=== PATIENT | male | born 2000 | race Caucasian/White ===

== ENCOUNTER 2022-03-28 00:14 | Emergency (ER) | payer MEDICAID, OTHER ==
[~2022-03-28] VITALS: Ht 193 cm; Wt 99.8 kg
--- NOTE | 2022-03-28 01:22 | ED EENT ---
History of Present Illness General Chief Complaint: Ear Problems Stated Complaint: BOTH EARS HURT,SORE THROAT Nursing Triage Note: PT AMBULATE TO ROOM 10 WITH C/O LEFT SIDE EAR PAIN AND SORE THROAT X2 DAYS. PT REPORTS TAKING IBUPROFEN FOR PAIN. PT STATES THAT THE PAIN HAS WORSENED. Source: patient History of Present Illness Date Seen by Provider: Mar 28, 2022 Time Seen by Provider: 00:29 Initial Comments PT ARRIVES VIA POV C/O BILATERAL EAR PAIN AND SORE THROAT SINCE TUESDAY NO KNOWN FEVER NO COUGH OR URI SYMPTOMS NO NAUSEA/VOMITING NO HEADACHE NO BODY ACHES TOOK 800 MG IBUPROFEN AT NOON, AND IT HELPED, BUT HAS NOT TAKEN ANYTHING ELSE FOR SYMPTOMS AT ANY TIME NO KNOWN SICK CONTACTS PT LIVES IN [place] AND HIS HERE VISITING HIS DAD FOR THE WEEKEND. Allergies and Home Medications Allergies Coded Allergies: No Known Drug Allergies (Unverified , 03/28/22) Patient Home Medication List Home Medication List Reviewed: Yes Review of Systems Review of Systems Constitutional: no symptoms reported; No fever Eyes: No Symptoms Reported Ears: See HPI, Pain Nose: no symptoms reported Mouth: no symptoms reported Throat: see HPI, pain; denies hoarse, denies aphonia, denies muffled; painful swallowing; denies difficulty with fluids, denies previous injury Respiratory: no symptoms reported Cardiovascular: no symptoms reported Gastrointestinal: no symptoms reported Musculoskeletal: no symptoms reported Skin: no symptoms reported Neurological: No Symptoms Reported Hematologic/Lymphatic: Swollen Glands (IN HIS NECK X 2 DAYS) Immunological/Allergic: no symptoms reported Past Ngppjqd-Diqluz-Ecxaxz Hx Patient Social History Tobacco Use?: No Smoking Status: Never a Smoker Smokeless Tobacco Frequency: Never a User Use of E-Cig and/or Vaping dev: No Use of E-Cig and/or Vaping Jn: Never a User Substance use?: No Alcohol Use?: No Pt feels they are or have been: No Past Medical History Surgeries: No Respiratory: Yes Asthma Cardiac: No Neurological: No Genitourinary: No Gastrointestinal: No Musculoskeletal: No Endocrine: No HEENT: No Cancer: No Psychosocial: No Integumentary: No Blood Disorders: No Physical Exam Vital Signs Vital Signs - First Documented 03/28/22 00:28 Temp 36.6 Pulse 92 Resp 16 B/P (MAP) 134/87 (103) O2 Delivery Room Air Height, Weight, BMI Height: '" Weight: lbs. oz. kg; 26.00 BMI Method: General Appearance: WD/WN, no apparent distress Eyes: bilateral eye normal inspection, bilateral eye PERRL, bilateral eye EOMI Ears: bilateral ear erythema (TM'S MARKEDLY INFLAMED BILATERALLY) Nose: normal inspection Mouth/Throat: No trismus, No uvula swelling, No voice changes; other (TONSILS +2/4 IN SIZE BILATERALLY AND VERY INFLAMED. NO EVIDENCE OF ABSCESS. NO MIDLINE SHIFT. RIGHT TONSIL HAS ONE SMALL AREA OF EXUDATE VS DEBRIS IN TONSILLAR CRYPT. OTHERWISE NO EXUDATE NOTED ANYWHERE ELSE. ) Neck: full range of motion, supple, lymphadenopathy (R), lymphadenopathy (L), other (MILD ANTERIOR CERVICAL ADENOPATHY, AND TENDER TO PALPATION) Cardiovascular: regular rate, rhythm, no murmur Respiratory: normal breath sounds Gastrointestinal: non tender, soft, no organomegaly Neurologic/Psychiatric: sugar presser II-XII nml as tested, no motor/sensory deficits, alert, normal mood/affect, oriented x 3 Skin: normal color, warm/dry; No rash Progress/Results/Core Measures Results/Orders Lab Results Laboratory Tests Test 03/28/22 00:36 Range/Units Influenza Type A (RT-PCR) Not Detected Not Detecte Influenza Type B (RT-PCR) Not Detected Not Detecte SARS-CoV-2 RNA (RT-PCR) Not Detected Not Detecte Group A Streptococcus Screen NEGATIVE NEGATIVE My Orders Orders - KJ MURRELL DO Rapid Strep A Screen (03/28/22 00:28) Covid 19 Inhouse Test (03/28/22 00:28) Influenza A And B By Pcr (03/28/22 00:28) Isolation Central Supply Req (03/28/22 00:28) Vital Signs/I&O 03/28/22 00:28 Temp 36.6 Pulse 92 Resp 16 B/P (MAP) 134/87 (103) O2 Delivery Room Air Blood Pressure Mean: 103 Progress Progress Note : Progress Note PLACED IN ISOLATION ROOM PPE WORN COVID, FLU, STREP TESTING DONE DISCUSSED TESTING FOR MONO, AND PT OPTS TO TRY ANTIBIOTICS AT THIS TIME. ADVISED PT THAT IF HE WAS NOT BETTER AFTER 3 DAYS OF ANTIBIOTICS, HE SHOULD FOLLOW UP WITH HIS REGULAR DR IN , AND MAY NEED TO BE TESTED FOR MONO OR RETESTED FOR OTHER INFECTIONS AT THAT TIME. GIVEN ROCEPHIN AND TORADOL Departure Impression Primary Impression: Pharyngitis Additional Impression: Bilateral otitis media Disposition: HOME, SELF-CARE Condition: Stable Departure-Patient Inst. Decision time for Depature: 01:20 Referrals: NO,LOCAL PHYSICIAN (PCP/Family) Primary Care Physician Patient Instructions: Ear Infections (Otitis Media) in Adults (DC), Sore Throat, Adult ED Add. Discharge Instructions: FREQUENT SALT WATER GARGLES OVER THE COUNTER CEPACOL LOZENGES NEEDED FOR PAIN LOTS OF CLEAR LIQUIDS TYLENOL 1 GRAM 4 TIMES A DAY NEEDED FOR PAIN OR FEVER FOLLOW UP WITH YOUR DR IN 3 DAYS IF NO BETTER, RETURN TO ER IF WORSE All discharge instructions reviewed with patient and/or family. Voiced understanding. Scripts Ketorolac Tromethamine (Ketorolac Tromethamine) 10 Mg Tablet 10 MG PO Q6H for Pain, #15 TAB Prov: KJ MURRELL DO 03/28/22 Cefuroxime Axetil (Cefuroxime) 500 Mg Tablet 500 MG PO BID, #20 TAB Prov: KJ MURRELL DO 03/28/22 KJ MURRELL DO Mar 28, 2022 01:22
[2022-03-28] MEDS ORDERED: CEFU500T63 PO (01:24)
[2022-03-28] MEDS ORDERED: KETO10TA PO (01:24)
[2022-03-28 01:28] VITALS: BP 134/87
[2022-03-28] MEDS ORDERED: cefTRIAXone 1,000 MG VIAL IM ONE (01:30)
[2022-03-28] MEDS ORDERED: KETOROLAC 60 MG/2 ML VIAL IM ONE (01:30)
[2022-03-28] MEDS ORDERED: LIDOCAINE 1% INJ 20 ML VIAL INJ ONE (01:30)
== END 2022-03-28 01:39 | disposition home or self-care (01) ==
LOC: EDUNIT# 00:14 → ER 00:18
DX: H66.93 Otitis media, unspecified, bilateral (principal); J02.9 Acute pharyngitis, unspecified; Z20.822 Contact with and (suspected) exposure to COVID-19; Z28.310 Unvaccinated for COVID-19
CPT/HCPCS: 87430; 87636; 99283

== ENCOUNTER 2022-04-06 21:45 | Emergency (ER) | payer MEDICAID ==
[~2022-04-06 21:45] MED LIST: CEFU500T63 PO; KETO10TA PO
[2022-04-06] MEDS ORDERED: cefTRIAXone 1 GM PRE-MIX 50 ML IV ONE (23:15)
[2022-04-06] MEDS ORDERED: KETOROLAC 30 MG/ML VIAL IVP ONE (23:15)
[2022-04-06] MEDS ORDERED: LACTATED RINGERS 1,000 ML IV ONE (23:15)
--- NOTE | 2022-04-06 23:19 | ED EENT ---
History of Present Illness General Chief Complaint: COVID19 Suspect/Confirmed Stated Complaint: THROAT SWELLING, EAR PAIN Source: patient (KJ MURRELL DO) History of Present Illness Date Seen by Provider: Apr 06, 2022 Time Seen by Provider: 22:49 Initial Comments PT ARRIVES VIA POV C/O SORE THROAT AND SWELLING TO LEFT TONSIL AREA C/O LEFT > RIGHT EAR PAIN NO FEVER MILD NASAL CONGESTION NO COUGH NO HEADACHE NO BODY ACHES NO GI SYMPTOMS WAS SEEN HERE 03/28/22 FOR SAME, COVID/FLU/STREP TESTS WERE NEGATIVE. DX WITH PHARYNGITIS AND PLACED ON CEFUROXIME AND TORADOL PT DECLINED MONO TESTING AT THAT TIME PT HAS NOT ATTEMPTED TO FOLLOW UP WITH ANYONE SINCE THAT VISIT FINISHED ANTIBIOTIC TODAY PAIN IN LEFT SIDE OF THROAT AND LEFT EAR IS MUCH WORSE TOOK IBUPROFEN X 1 TODAY WITHOUT RELIEF PT LIVES IN [place], IS HERE VISITING (KJ MURRELL DO) Allergies and Home Medications Allergies Coded Allergies: No Known Drug Allergies (Unverified , 03/28/22) Patient Home Medication List Home Medication List Reviewed: Yes (DARYA CHAVEZ MD) Cefuroxime Axetil (Cefuroxime) 500 Mg Tablet, 500 MG PO BID Prescribed by: KJ MURRELL on 03/28/22 0124 Ketorolac Tromethamine (Ketorolac Tromethamine) 10 Mg Tablet, 10 MG PO Q6H Prescribed by: KJ MURRELL on 03/28/22 0124 Review of Systems Review of Systems Constitutional: no symptoms reported Eyes: No Symptoms Reported Ears: See HPI Nose: see HPI, congestion Mouth: no symptoms reported Throat: see HPI Respiratory: no symptoms reported; No cough, No short of breath Cardiovascular: no symptoms reported Gastrointestinal: no symptoms reported Musculoskeletal: no symptoms reported Skin: no symptoms reported Neurological: No Symptoms Reported Hematologic/Lymphatic: No Symptoms Reported Immunological/Allergic: no symptoms reported (KJ MURRELL DO) Past Bezpeks-Egyxzc-Xwesgg Hx Patient Social History Tobacco Use?: No Substance use?: No Alcohol Use?: No (KJ MURRELL DO) Past Medical History Surgeries: No Respiratory: Yes Asthma Cardiac: No Neurological: No Genitourinary: No Gastrointestinal: No Musculoskeletal: No Endocrine: No HEENT: No Cancer: No Psychosocial: No Integumentary: No Blood Disorders: No (KJ MURRELL DO) Physical Exam Vital Signs Vital Signs - First Documented 04/06/22 22:41 Temp 36.8 Pulse 88 Resp 16 B/P (MAP) 147/77 (100) Pulse Ox 96 O2 Delivery Room Air (DARYA CHAVEZ MD) Height, Weight, BMI Height: '" Weight: lbs. oz. kg; 26.00 BMI Method: General Appearance: WD/WN, no apparent distress Eyes: bilateral eye normal inspection, bilateral eye PERRL, bilateral eye EOMI Ears: bilateral ear other (TM'S INFLAMED BILATERALLY--LEFT > RIGHT) Mouth/Throat: No tonsillar exudate; tonsillar swelling; No trismus; voice changes, other (TONSILS INFLAMED, LEFT TONSIL IS VERY SWOLLEN WITH UVULAR SHIFT--UVULA IS TOUCHING RIGHT TONSIL. NO EXUDATE. VOICE IS SLIGHTLY MUFFLED. ) Neck: non-tender, full range of motion, supple, lymphadenopathy (R), lymphadenopathy (L) Cardiovascular: regular rate, rhythm, no murmur Respiratory: normal breath sounds Gastrointestinal: normal bowel sounds, non tender, soft, no organomegaly Neurologic/Psychiatric: over short and damage clerk II-XII nml as tested, no motor/sensory deficits, alert, normal mood/affect, oriented x 3 Skin: normal color, warm/dry (KJ MURRELL DO) Progress/Results/Core Measures Results/Orders Lab Results Laboratory Tests Test 04/06/22 23:27 04/07/22 06:40 Range/Units White Blood Count 19.5 H 21.0 H 4.3-11.0 10^3/uL Red Blood Count 5.52 5.83 H 4.30-5.52 10^6/uL Hemoglobin 16.8 17.8 H 13.3-17.7 g/dL Hematocrit 49 52 40-54 % Mean Corpuscular Volume 88 88 80-99 fL Mean Corpuscular Hemoglobin 30 31 25-34 pg Mean Corpuscular Hemoglobin Concent 35 35 32-36 g/dL Red Cell Distribution Width 12.2 12.3 10.0-14.5 % Platelet Count 318 340 130-400 10^3/uL Mean Platelet Volume 10.1 9.9 9.0-12.2 fL Immature Granulocyte % (Auto) 1 1 % Neutrophils (%) (Auto) 83 H 92 H 42-75 % Lymphocytes (%) (Auto) 8 L 5 L 12-44 % Monocytes (%) (Auto) 8 2 0-12 % Eosinophils (%) (Auto) 1 0 0-10 % Basophils (%) (Auto) 0 0 0-10 % Neutrophils # (Auto) 16.1 H 19.4 H 1.8-7.8 10^3/uL Lymphocytes # (Auto) 1.5 1.1 1.0-4.0 10^3/uL Monocytes # (Auto) 1.6 H 0.4 0.0-1.0 10^3/uL Eosinophils # (Auto) 0.2 0.0 0.0-0.3 10^3/uL Basophils # (Auto) 0.1 0.0 0.0-0.1 10^3/uL Immature Granulocyte # (Auto) 0.1 0.1 0.0-0.1 10^3/uL Neutrophils % (Manual) 77 % Lymphocytes % (Manual) 11 % Monocytes % (Manual) 5 % Eosinophils % (Manual) 2 % Band Neutrophils 5 % Blood Morphology Comment NORMAL Erythrocyte Sedimentation Rate 3 0-15 MM/HR Sodium Level 138 136 135-145 MMOL/L Potassium Level 3.7 5.1 H 3.6-5.0 MMOL/L Chloride Level 101 102 98-107 MMOL/L Carbon Dioxide Level 23 25 21-32 MMOL/L Anion Gap 14 9 5-14 MMOL/L Blood Urea Nitrogen 11 11 7-18 MG/DL Creatinine 1.11 1.21 0.60-1.30 MG/DL Estimat Glomerular Filtration Rate 97 88 BUN/Creatinine Ratio 10 9 Glucose Level 106 H 158 H 70-105 MG/DL Lactic Acid Level 0.78 0.50-2.00 MMOL/L Calcium Level 9.6 10.2 H 8.5-10.1 MG/DL Corrected Calcium 8.5-10.1 MG/DL Total Bilirubin 0.6 0.7 0.1-1.0 MG/DL Aspartate Amino Transf (AST/SGOT) 18 16 5-34 U/L Alanine Aminotransferase (ALT/SGPT) 33 33 0-55 U/L Alkaline Phosphatase 54 57 40-136 U/L C-Reactive Protein High Sensitivity 3.16 H 0.00-0.50 MG/DL Total Protein 8.1 8.4 H 6.4-8.2 GM/DL Albumin 4.7 H 4.8 H 3.2-4.5 GM/DL Procalcitonin 0.06 <0.10 NG/ML Monoscreen NEGATIVE NEGATIVE Influenza Type A (RT-PCR) Not Detected Not Detecte Influenza Type B (RT-PCR) Not Detected Not Detecte SARS-CoV-2 RNA (RT-PCR) Not Detected Not Detecte Group A Streptococcus Screen NEGATIVE NEGATIVE (DARYA CHAVEZ MD) My Orders Orders - DARYA CHAVEZ MD Lactated Ringers (Lr 1000 Ml Iv Solution (04/07/22 06:36) (DARYA CHAVEZ MD) Medications Given in ED Current Medications Medications Dose Ordered Sig/Sneha Route Start Time Stop Time Status Last Admin Dose Admin Ceftriaxone Sodium/Dextrose 50 ml @ 100 mls/hr ONCE ONCE IV 04/06/22 23:15 04/06/22 23:44 DC 04/06/22 23:40 100 MLS/HR Dexamethasone Sodium Phosphate 10 mg ONCE ONCE IV 04/06/22 23:15 04/06/22 23:16 DC 04/06/22 23:34 10 MG Iohexol 100 ml ONCE ONCE IV 04/07/22 01:15 04/07/22 01:17 DC 04/07/22 01:11 75 ML Ketorolac Tromethamine 30 mg ONCE ONCE IVP 04/06/22 23:15 04/06/22 23:16 DC 04/06/22 23:34 30 MG Lactated Ringer's 1,000 ml @ 0 mls/hr Q0M ONCE IV 04/06/22 23:15 04/06/22 23:16 DC 04/06/22 23:33 999 MLS/HR Lactated Ringer's 1,000 ml @ 0 mls/hr Q0M ONCE IV 04/07/22 03:30 04/07/22 03:31 DC 04/07/22 06:39 999 MLS/HR Sodium Chloride 10 ml NEEDED PRN IV 04/07/22 01:15 04/07/22 01:11 10 ML Sodium Chloride 100 ml ONCE ONCE IV 04/07/22 01:15 04/07/22 01:17 DC 04/07/22 01:11 77 ML (DARYA CHAVEZ MD) Vital Signs/I&O 04/06/22 04/07/22 22:41 06:44 Temp 36.8 Pulse 88 72 Resp 16 16 B/P (MAP) 147/77 (100) 141/89 Pulse Ox 96 94 O2 Delivery Room Air Room Air 04/07/22 00:00 Intake Total 50 ml Balance 50 ml (DARYA CHAVEZ MD) Progress Progress Note : Progress Note PLACED IN ISOLATION ROOM PPE WORN COVID, FLU, STREP AND MONO TESTING DONE GIVEN IV FLUIDS, DECADRON, TORADOL AND ROCEPHIN NO DETERIORATION IN PT'S CONDITION DURING ER STAY 0600--CARE TURNED OVER TO DR. CHAVEZ, PENDING DR. HUTTON EVALUATING PT HERE IN ER (KJ MURRELL DO) Progress Note : Progress Note 0741: Patient was seen by Dr. Feldman and had abscess drained. He will follow-up with patient in office in 2 weeks. Prescriptions written by him. Discharged home with return precautions. Patient verbalized understanding instructions and agreement with plan. (DARYA CHAVEZ MD) Diagnostic Imaging Comments CT NECK SOFT TISSUE--2.1 CM LEFT TONSILLAR ABSCESS--PER [facility] VIA FAX AT 0150 Reviewed: Reviewed by Me (KJ MURRELL DO) Departure Communication (Admissions) 0155--SPOKE WITH DR. HUTTON, HOSPITALIST, SHE ADVISES TO HOLD PT IN ER, SHE WILL SEE PT IN AM AND CONSULT DR. FELDMAN AT THAT TIME, HE IS ONLY CREDIT ASSISTANT FOR HIS OWN PATIENTS TONIGHT AT THIS HOUR. . (KJ MURRELL DO) Impression Primary Impression: LEFT PERITONISLLAR ABSCESS Additional Impression: Bilateral otitis media Qualified Codes: H65.93 - Unspecified nonsuppurative otitis media, bilateral Disposition: 01 HOME, SELF-CARE Condition: Stable Departure-Patient Inst. Decision time for Depature: 07:40 (DARYA CHAVEZ MD) Referrals: VICKI FELDMAN MD NO,LOCAL PHYSICIAN (PCP) Primary Care Physician Patient Instructions: Peritonsillar Abscess, Adult (DC) Add. Discharge Instructions: All discharge instructions reviewed with patient and/or family. Voiced understanding. Take medications as directed by Dr. Feldman. Follow-up with his office in 2 weeks. Call for appointment. Return for worse pain, swelling, breathing pr oblems, difficulty with swallowing, fever or other concerns as needed. KJ MURRELL DO Apr 06, 2022:19 DARYA CHAVEZ MD Apr 07, 2022 07:42
[2022-04-06 23:54] LABS: BASOPHILS # (AUTO) 0.1 10^3/uL (0.0-0.1); BASOPHILS % (AUTO) 0 % (0-10); EOSINOPHILS # (AUTO) 0.2 10^3/uL (0.0-0.3); EOSINOPHILS % (AUTO) 1 % (0-10); HEMATOCRIT 49 % (40-54); HEMOGLOBIN 16.8 g/dL (13.3-17.7); LYMPHOCYTES # (AUTO) 1.5 10^3/uL (1.0-4.0); LYMPHOCYTES % (AUTO) 8 % (12-44); MEAN CORPUSCULAR HEMOGLOBIN 30 pg (25-34); MEAN CORPUSCULAR HGB CONC 35 g/dL (32-36); MEAN CORPUSCULAR VOLUME 88 fL (80-99); MEAN PLATELET VOLUME 10.1 fL (9.0-12.2); MONOCYTES # (AUTO) 1.6 10^3/uL (0.0-1.0); MONOCYTES % (AUTO) 8 % (0-12); NEUTROPHILS # (AUTO) 16.1 10^3/uL (1.8-7.8); NEUTROPHILS % (AUTO) 83 % (42-75); PLATELET COUNT 318 10^3/uL (130-400); WHITE BLOOD COUNT 19.5 10^3/uL (4.3-11.0)
[2022-04-07 00:03] LABS: ALBUMIN 4.7 GM/DL (3.2-4.5); CHLORIDE 101 MMOL/L (98-107); POTASSIUM 3.7 MMOL/L (3.6-5.0); SODIUM 138 MMOL/L (135-145)
[2022-04-07 00:04] LABS: CALCIUM 9.6 MG/DL (8.5-10.1)
[2022-04-07 00:06] LABS: GLUCOSE 106 MG/DL (70-105); TOTAL PROTEIN 8.1 GM/DL (6.4-8.2)
[2022-04-07 00:07] LABS: BILIRUBIN,TOTAL 0.6 MG/DL (0.1-1.0); CARBON DIOXIDE 23 MMOL/L (21-32)
[2022-04-07 00:09] LABS: ALKALINE PHOSPHATASE 54 U/L (40-136); CREATININE SERUM 1.11 MG/DL (0.60-1.30); GFR ESTIMATED 97
[2022-04-07 00:10] LABS: BUN/CREATININE RATIO 10
[2022-04-07 00:13] LABS: ALANINE AMINOTRANSFERASE 33 U/L (0-55)
[2022-04-07 00:24] LABS: ERYTHROCYTE SEDIMENTATION RATE 3 MM/HR (0-15)
[2022-04-07 00:37] LABS: BAND NEUTROPHILS 5 %; EOSINOPHILS % (MANUAL) 2 %; LYMPHOCYTES % (MANUAL) 11 %; MONOCYTES % (MANUAL) 5 %; NEUTROPHILS % (MANUAL) 77 %; RBC MORPH NORMAL
[2022-04-07] MEDS ORDERED: NS 100 ML (IVPB) BAG IV ONE (01:15)
[2022-04-07] MEDS ORDERED: IOHEXOL 350 MG/ML 100 ML (OMNIPAQUE 350) VIAL IV ONE (01:15)
[2022-04-07] MEDS ORDERED: CATHETER FLUSH 10 ML SYR IV PRN (01:15)
[2022-04-07] MEDS ORDERED: LACTATED RINGERS 1,000 ML IV ONE ×2 (03:30→06:36)
--- NOTE | 2022-04-07 06:45 | Diagnostic Imaging Report ---
Indication: Sore throat, despite antibiotics, suspicion for abscess. TECHNIQUE: Multiple contiguous axial images were obtained through the neck after the administration of contrast. Auto Exposure Controls were utilized during the CT exam to meet ALARA standards for radiation dose reduction. There is no prior CT for comparison. In the left peritonsillar region, there is an ill-defined fluid density area measuring about 2.1 x 1.6 cm, compatible with peritonsillar abscess. There is adjacent soft tissue thickening compatible with inflammatory reaction. There is narrowing in the piriform sinus on the left side. Epiglottis is not appreciably thickened. There are no parotid lesions. Submandibular glands appear symmetric. The thyroid gland appeared normal. There are a few shotty lymph nodes in the posterior cervical chain on both sides which may be reactive. IMPRESSION: Findings compatible with left-sided peritonsillar abscess as described above, with adjacent inflammatory reaction. There are some shotty lymph nodes in the neck which are likely reactive. Dictated by: Dictated on workstation # [id number]
[2022-04-07 06:51] LABS: BASOPHILS % (AUTO) 0 % (0-10); EOSINOPHILS % (AUTO) 0 % (0-10); HEMATOCRIT 52 % (40-54); HEMOGLOBIN 17.8 g/dL (13.3-17.7); LYMPHOCYTES # (AUTO) 1.1 10^3/uL (1.0-4.0); LYMPHOCYTES % (AUTO) 5 % (12-44); MEAN CORPUSCULAR HEMOGLOBIN 31 pg (25-34); MEAN CORPUSCULAR HGB CONC 35 g/dL (32-36); MEAN CORPUSCULAR VOLUME 88 fL (80-99); MEAN PLATELET VOLUME 9.9 fL (9.0-12.2); MONOCYTES # (AUTO) 0.4 10^3/uL (0.0-1.0); MONOCYTES % (AUTO) 2 % (0-12); NEUTROPHILS # (AUTO) 19.4 10^3/uL (1.8-7.8); NEUTROPHILS % (AUTO) 92 % (42-75); PLATELET COUNT 340 10^3/uL (130-400)
[2022-04-07 07:07] LABS: ALBUMIN 4.8 GM/DL (3.2-4.5); CHLORIDE 102 MMOL/L (98-107); POTASSIUM 5.1 MMOL/L (3.6-5.0); SODIUM 136 MMOL/L (135-145)
[2022-04-07 07:08] LABS: CALCIUM 10.2 MG/DL (8.5-10.1)
[2022-04-07 07:09] LABS: GLUCOSE 158 MG/DL (70-105); TOTAL PROTEIN 8.4 GM/DL (6.4-8.2)
[2022-04-07 07:10] LABS: CARBON DIOXIDE 25 MMOL/L (21-32)
[2022-04-07 07:11] LABS: BILIRUBIN,TOTAL 0.7 MG/DL (0.1-1.0)
[2022-04-07 07:13] LABS: ALKALINE PHOSPHATASE 57 U/L (40-136); CREATININE SERUM 1.21 MG/DL (0.60-1.30); GFR ESTIMATED 88
[2022-04-07 07:14] LABS: BUN/CREATININE RATIO 9
[2022-04-07 07:16] LABS: ALANINE AMINOTRANSFERASE 33 U/L (0-55)
[2022-04-07 07:50] VITALS: BP 141/89
== END 2022-04-07 07:50 | disposition home or self-care (01) ==
LOC: EDUNIT# 21:45 → ER 21:46
DX: J36 Peritonsillar abscess (principal); H66.93 Otitis media, unspecified, bilateral; Z20.822 Contact with and (suspected) exposure to COVID-19; Z28.310 Unvaccinated for COVID-19
CPT/HCPCS: 36415; 70491; 80053; 83605; 84145; 85007; 85025; 85027; 85652; 86141; 86308; 87040; 87430; 87636